=== PATIENT | female | born 1980 | race Caucasian/White ===

== ENCOUNTER 2024-05-30 18:03 | Emergency (ER) | payer OTHER, SELFPAY ==
--- NOTE | 2024-05-30 18:14 | ED.GENADULT ---
HPI - General Adult General Chief complaint: Environmental Exposure <Sadia Gonzalez PA-C - Last Filed: 05/31/24 09:13> Stated complaint: CARBON MONOXIDE EXPOSURE <Sadia Gonzalez PA-C - Last Filed: 05/31/24 09:13> Time Seen by Provider: 05/30/24 18:14 <Sadia Gonzalez PA-C - Last Filed: 05/31/24 09:13> Focused HPI: This is a 43 year old female that presents to the ER for possible carbon monoxide exposure. Reports her daughter was cleaning her car in the garage with the door shut for about 10 minutes and had her car on. The patient was only exposed in the garage briefly. Is asymptomatic. GENERAL: Well-appearing, well-nourished, and in no acute distress. HEAD: Normocephalic, atraumatic. CHEST: Clear to auscultation. ?No respiratory distress. HEART: Regular rate and rhythm.? NEURO: ?Alert and oriented x3. Patient screened in triage and initial orders placed.? ?Additional care and disposition to be based upon?diagnostic testing and treatment. <Sadia Gonzalez PA-C - Last Filed: 05/31/24 09:13> History of Present Illness HPI narrative: 33-year-old female presents emergency department with her daughter is at bedside to concerns for carbon monoxide poisoning. Patient states her daughter was in the garage with her car on in the garage door closed for about 10-15 minutes cleaning her car. States she when out to the garage in notice this, immediately turned carpet open the door. She states she thinks she was briefly exposed to carbon monoxide but is unsure given she was in the house connected to the garage. She states she has a very mild headache, no vision changes. She is reporting very minimal chest pressure but is attributing this to stress and anxiety. She denies syncope or lightheadedness. <Sera Melton PA-C - Last Filed: 05/30/24 20:06> Related Data Home medications: Home Medications Medication Instructions Recorded Confirmed cetirizine 10 mg capsule (Zyrtec) 10 mg PO DAILY 10/08/20 01/11/24 d-mannose 500 mg capsule mg PO 12/16/21 01/11/24 levonorgestrel 21 mcg/24 hr (up to 1 device intrauterine ONCE 02/10/22 01/11/24 8 years) 52 mg intrauterine device (Mirena) ashwajosedha extract 120 mg capsule mg PO 12/12/22 01/11/24 pediatric atewzphy-cnpr-ytz 1 tablet PO DAILY 06/15/23 01/11/24 (Multi-Vitamins with Iron chewable tablet) <Sadia Gonzalez PA-C - Last Filed: 05/31/24 09:13> Allergies/adverse reactions: Allergies Allergy/AdvReac Type Severity Reaction Status Date / Time No Known Allergies Allergy Unknown Verified 05/30/24 19:16 <Sadia Gonzalez PA-C - Last Filed: 05/31/24 09:13> Review of Systems Review of Systems: All systems reviewed & are unremarkable except as noted in HPI and below <Sera Melton PA-C - Last Filed: 05/30/24 20:06> [facility] Past Medical History Medical History: Medical History Anxiety Basal cell carcinoma Removed with Mohs procedure 09/2021 Encounter for screening examination for sexually transmitted disease Eye disorder (~10/05/08) PRK - Lasik Mitral valve regurgitation Recurrent UTI (urinary tract infection) Screening mammogram, encounter for Vitamin D deficiency <Sadia Gonzalez PA-C - Last Filed: 05/31/24 09:13> Surgical History Surgical History: Surgical History H/O abdominoplasty (~12/03/12) H/O colonoscopy with polypectomy (~04/11/20) History of bunionectomy of both great toes (~10/05/96) 10/05/1995 History of gynecological procedure (11/05/16) Mirena iud removal and insertion History of gynecological procedure (11/04/11) mirena iud insertion History of gynecological procedure (~02/10/22) mirena iud removal and insertion History of nasal surgery (~08/05/10) nasal vessels cautery/ tumor <Sadia Gonzalez PA-C - Last Filed: 05/31/24 09:13> Family History Family History:
[2024-05-30 18:23] VITALS: BP 149/93; PULSE 69; RESP 15; TEMP 36.8; O2SAT 100
--- NOTE | 2024-05-30 18:52 | ECG_ITS ---
Test Date: 2024-05-30 19:26:13 Measurements Intervals [place] Rate: 53 P: 56 ME: 179 QRS: 35 QRSD: 77 T: 32 QT: 440 QTc: 414 Interpretive Statements SINUS BRADYCARDIA No previous ECG available for comparison Electronically Signed On 05-31-2024 15:38:34 CDT by Master Taylor M.D.
[2024-05-30 19:15] VITALS: RESP 20; O2SAT 100
[2024-05-30 19:16] LABS: Basophils Percent Auto 0.4 % (0.2-1.2); Eosinophils Absolute Auto 0.3 K/mm3 (0-0.3); Eosinophils Percent Auto 4.2 % (0-4.4); Hematocrit 39.9 % (37.0-47.0); Hemoglobin 13.3 g/dL (12.0-15.0); Immature Granulocyte Absolute 0.01 K/mm3 (0.00-0.031); Immature Granulocyte Percent A 0.1 % (0-0.5); Lymphocytes Absolute Auto 3.13 K/mm3 (0.9-3.2); Lymphocytes Percent Auto 38.4 % (18.3-44.2); Mean Corpuscular HGB Conc 33.3 g/dl (32-36); Mean Corpuscular Hemoglobin 31.5 pg (26-34); Mean Corpuscular Volume 94.5 fl (80-100); Mean Platelet Volume 9.5 fl (7.4-10.4); Monocytes Absolute Auto 0.5 K/mm3 (0.1-0.6); Monocytes Percent Auto 6.1 % (2.6-8.5); Neutrophils Absolute Auto 4.2 K/mm3 (1.3-6.7); Neutrophils Percent Auto 50.8 % (45.5-73.1); Platelet Count Result 262 k/mm3 (150-375); Red Blood Count 4.22 M/mm3 (4.2-5.4); Red Cell Distribution Width 12.5 % (11.5-14.5); White Blood Count 8.2 K/mm3 (4.5-10.0)
[2024-05-30 19:25] LABS: Fractional Inspired Oxygen 21 %; HCO3 VBG 28.4 mEq/l (24.0-30.0); PCO2 VBG 48.3 mmHg (42.0-48.0); PO2 VBG 38.9 mmHg (35.0-45.0); pH VBG 7.387 (7.300-7.400)
[2024-05-30 19:28] LABS: Alanine Aminotransferase 16 U/L (6-35); Albumin Level 4.6 g/dL (3.5-5.1); Alkaline Phosphatase 39 U/L (38-126); Anion Gap 9 mmol/L (4-12); Aspartate Amino Transferase 33 U/L (14-36); Bilirubin,Total 0.5 mg/dL (0.2-1.3); Blood Urea Nitrogen 17 mg/dL (7-17); Calcium 9.1 mg/dL (8.4-10.2); Carbon Dioxide 28 mmol/L (22-30); Chloride 100 mmol/L (98-107); Estimated CRCL calculation 62 ml/min; Estimated Glomerular Filt Rate > 60; Glucose 104 mg/dL (65-110); Potassium 4.4 mmol/L (3.4-5.0); Sodium 137 mmol/L (137-145)
[2024-05-30 19:38] LABS: Troponin I < 0.012 ng/mL (0.000-0.034)
[2024-05-30 19:50] VITALS: BP 122/83; PULSE 60; RESP 16; O2SAT 100
== END 2024-05-30 20:10 | disposition home or self-care (01) ==
PROVIDERS: Emergency Provider Physician Assistant; PCP Family Medicine
DX: T58.91XA Toxic effect of carbon monoxide from unspecified source, accidental (unintentional), initial encounter (principal); F41.9 Anxiety disorder, unspecified; Z87.440 Personal history of urinary (tract) infections; Z85.828 Personal history of other malignant neoplasm of skin
CPT/HCPCS: 36415; 80053; 82803; 84484; 85025; 93005; 99284